=== PATIENT | male | born 1985 | race Hispanic/Latino ===

== ENCOUNTER 2017-07-24 21:10 | Emergency (ER) | payer OTHER | END 2017-07-24 23:29 | disposition home or self-care (01) | LOC: EDH 21:10 → EDBD 21:10 → EDH 23:29 | DX: S46.211A Strain of muscle, fascia and tendon of other parts of biceps, right arm, initial encounter (principal); X58.XXXA Exposure to other specified factors, initial encounter; Y93.89 Activity, other specified; Y92.89 Other specified places as the place of occurrence of the external cause; Y99.8 Other external cause status | CPT/HCPCS: 99281 ==